=== PATIENT | female | born 1990 | race Caucasian/White ===

== ENCOUNTER 2017-12-07 16:00 | Inpatient (IN) ==
[2017-12-07] MEDS ORDERED: ceFAZolin 2 GM Premix Inj 2 GM/50 ML PIGGYBACK IV.SIG SCH (16:21)
[2017-12-07] MEDS ORDERED: Citric Acid/Sodium Citrate Liq 30 ML UDC PO SCH (16:30)
[2017-12-07 16:46] LABS: Baso % (Auto) 0.2 % (0.0-2.0); Eos % (Auto) 0.4 % (0.0-4.0); Lymph # (Auto) 1.9 th/mm3 (1.0-4.8); Lymph % (Auto) 19.7 % (9.0-44.0); Mean Platelet Volume 10.8 fL (7.0-11.0); Mono # (Auto) 0.5 th/mm3 (0.0-0.9); Mono % (Auto) 5.4 % (0.0-8.0); Neut # (Auto) 7.2 th/mm3 (1.8-7.7); Neut % (Auto) 74.3 % (16.0-70.0); Platelet Count 180 th/mm3 (150-450); Red Cell Distribution Width 13.1 % (11.6-17.2); White Blood Count 9.7 th/mm3 (4.0-11.0)
[2017-12-07 16:50] LABS: Hemoglobin 13.4 gm/dL (11.6-15.3); Mean Corpuscular HGB Conc 33.6 % (32.0-36.0); Mean Corpuscular Hemoglobin 29.5 pg (27.0-34.0); Mean Corpuscular Volume 87.8 fL (80.0-100.0); Red Blood Count 4.56 mil/mm3 (4.00-5.30)
[2017-12-07 16:57] LABS: Amphetamine Screen,Urine Neg (Neg); Barbiturate Screen,Urine Neg (Neg); Cannabinoid Screen,Urine Neg (Neg); Cocaine Screen,Urine Neg (Neg)
[2017-12-07 17:10] LABS: Opiate Screen,Urine Neg (Neg)
[2017-12-07] MEDS ORDERED: Morphine Sulfate PF Inj 5 MG/10 ML Ampul ONE (17:15)
[2017-12-07 17:16] LABS: Albumin 2.8 g/dL (3.4-5.0); Anion Gap 10 meq/L (5-15); Aspartate Aminotransferase 11 U/L (15-37); Blood Urea Nitrogen 6 mg/dL (7-18); Calcium 8.5 mg/dL (8.5-10.1); Carbon Dioxide 23.5 meq/L (21.0-32.0); Chloride 107 meq/L (98-107); Glomerular Filtration Rate Greater Than 89 mL/min (>89); Glucose,Random 77 mg/dL (74-106); Potassium 3.8 meq/L (3.5-5.1); Sodium 140 meq/L (136-145)
[2017-12-07 17:17] LABS: Alanine Aminotransferase 12 U/L (10-53); Protein/Creatinine Ratio,Urine 0.2 (0.00-0.14)
[2017-12-07 17:20] LABS: Alkaline Phosphatase 128 U/L (45-117); Total Protein 6.9 g/dL (6.4-8.2)
[2017-12-07 17:22] LABS: Platelet Estimate Normal (Normal); Platelet Morphology Normal (Normal); RBC Morphology Normal (Normal)
--- NOTE | 2017-12-07 17:40 | P.OP ---
Date of procedure: 12/07/17 Surgeon: Ranjan Alba MD Operation and Findings: Preoperative diagnosis: 1. Intrauterine at 38 weeks and 0 days 2. Oligohydramnios 3. Gestational hypertension 4. Two-vessel cord 5. History of low transverse section Postop diagnosis 1. Same as above status post repeat Procedure 1. Repeat low transverse section and bilateral tubal ligation ( modified Marley) Surgeon Dr. Ranjan Alba Leather Coater: [place] labor and delivery scrub staff Findings: 1. Viable male infant at 1810, Apgars 9 and 9, weight 355 0 g 2. Intact placenta two-vessel cord at 1813 3. Normal uterus, fallopian tubes and ovaries bilaterally, no intra-abdominal adhesions, minimal subcutaneous scarring. Anesthesia: Spinal Specimen: Placenta to donation. Bilateral fallopian tube segments to pathology routine Estimated blood loss: 600 cc Fluid replacement: 1500 cc lactated Ringer's and Pitocin Urine output: 300 cc clear [facility] DVT prophylaxis: Sequential compression devices throughout the case Antibiotics: 2 g Ancef preoperatively Counts: correct x2 Time out done: yes Disposition: Stable to PACU then Indications: Patient is a 27-year-old who is seen today for routine visit and testing for gestational hypertension that was diagnosed last week, she had new found oligohydramnios with PAVAN of 4.0 cm, and a BPP of 6 out of 8, we discussed options for delivery and patient presented today for scheduled , she had Mario been scheduled for repeat at 39 weeks. Description of procedure: The patient was taken to the operating room and after spinal anesthesia was performed she was positioned and supine position with arms out in a left lateral tilt, the abdomen was prepped and draped in sterile fashion, a Pfannenstiel incision was made through the previous scar and carried down sharply to the fascia which was nicked on either side of the midline, this was extended bilaterally, the fascia was elevated superiorly and inferiorly and the rectus muscles were sharply dissected off the overlying fascia, the peritoneum was entered digitally and retracted laterally. A bladder flap was developed with Metzenbaum scissors at the lower uterine segment, the hysterotomy was made in the lower uterine segment with a scalpel in a curvilinear fashion, it was extended cephalad-caudad manner, I inserted my hand into the hysterotomy and the head was elevated to the hysterotomy and with fundal pressure was delivered. With gentle downward and upward guidance the anterior and posterior shoulder was delivered, followed by the torso and lower extremities with ease, the infant had spontaneous cry the cord was clamped and cut, the was handed off to nursing staff after delayed cord clamping was allowed. Pitocin was bolused and with uterine massage and cord traction the placenta was delivered, uterus was cleared of clot and debris, the uterus was exteriorized and the hysterotomy was closed with 2 layers, first with unlocked 0 Vicryl, and a second with interrupted [id number] with 0 Vicryl mostly for hemostasis. the abdomen and hysterotomy were irrigated, inspected, and found to be hemostatic. Bilateral mid isthmic segments of the fallopian tube were elevated and doubly ligated with 0 plain gut and elevated knuckle was cut and transected with Metzenbaums. The cut edges were hemostatic. The fascia was closed from left to right with 0 running delayed absorbable suture. The subcutaneous tissue was irrigated, inspected, hemostasis was appreciated. Subcutaneous space was closed with running 3-0 Vicryl. the skin was closed with 3-0 Monocryl in a subcuticular fashion and then a dressing was applied and the patient tolerated procedure well was transferred to PACU.
--- NOTE | 2017-12-07 17:42 | P.OBGPN ---
Queried PDMP and reviewed report
[2017-12-07] MEDS ORDERED: Ketorolac Inj 30 MG/ML (IVP) Vial IV.PUSH ONE ×2 (17:45→18:56)
[2017-12-07] MEDS ORDERED: Influenza (Quadrivalent) Vaccine 0.5 ML Syringe IM ONE (18:00)
--- NOTE | 2017-12-07 18:23 | MH ---
cc: Ranjan Alba MD DATE OF ADMISSION: 12/07/2017 CHIEF COMPLAINT: Repeat . HISTORY OF PRESENT ILLNESS: This patient is a 27-year-old G3, P2-0-0-2, at 38 weeks and 0 days by 17-week ultrasound with estimated due date of 12/21/2017, here for a scheduled repeat due to new diagnosis of oligohydramnios and gestational hypertension. The patient has no complaints today. Her has been complicated by history of a low transverse , 2-vessel cord and diagnosis of gestational hypertension last week. PAST MEDICAL HISTORY: Scoliosis. MEDICATIONS: vitamins. ALLERGIES: NO KNOWN DRUG ALLERGIES. PAST SURGICAL HISTORY: 1. Scoliosis rods. 2. 2013. FAMILY HISTORY: No pertinent positive family. SOCIAL HISTORY: Former tobacco user. Denies any alcohol or drug use during the . LIGHTING ADVISER HISTORY: LMP 03/20/2017. Denies history of STD. OBSTETRIC HISTORY: 1. In 2010, at 39 weeks of a male weighing 9 pounds 4 ounces, no complications. 2. In 2013, 39 week scheduled low transverse due to suspected macrosomia, male, weight 7 pounds. PHYSICAL EXAMINATION: VITAL SIGNS: See EMR no acute distress. CARDIAC: Regular rate and rhythm. No murmurs or gallops. ABDOMEN: Soft, gravid, nontender. : Deferred. EXTREMITIES: No clubbing, cyanosis or edema. LABORATORY DATA: All labs are unremarkable. Please see her a cog for details. ASSESSMENT AND PLAN: A 27-year-old, G3, P2-0-0-2 at 30 weeks and 0 days, for repeat and bilateral tubal ligation. 1. Intrauterine : Will be placed on monitoring. PAVAN of 4.2 cm today, in cephalic position placenta anterior. 2. History of , desiring repeat. The patient was counseled on the risks, benefits, and expected outcomes of a . Please see consent for further details. The patient also desires sterilization. This was done today secondary to new diagnosis of oligohydramnios and 6/8 BPP. 3. Gestational hypertension based on normal HELLP labs last week, elevated blood pressures in the mild range, and a protein creatinine ratio of 0.245. We will continue to monitor blood pressures while inpatient and collect HELLP labs on admission 4. Oligohydramnios: Diagnosed today 5. Two-vessel cord, negative quad screen, normal anatomy. 6. Scoliosis. Anesthesia to assess candidacy for regional anesthesia. 7. Desires sterilization. Signed Medicaid consent in the office. MD DIANE Carlson/elodia , 04:59 PM , 05:09 PM MTDD
[2017-12-07] MEDS ORDERED: Zolpidem Tartrate 5 MG Tablet PO PRN (18:56)
[2017-12-07] MEDS ORDERED: Acetaminophen 325 MG Tablet PO PRN (18:56)
[2017-12-07] MEDS ORDERED: Oxytocin 30 Units/500ml Premix 30 UNITS/500 ML BAG IV.SIG ONE (18:56)
[2017-12-07] MEDS ORDERED: Oxytocin 30 Units/500ml Premix 30 UNITS/500 ML BAG IV.SIG PRN (23:56)
[2017-12-08] MEDS: Ketorolac Inj 30 MG/ML (IVP) Vial IV.PUSH SCH ×3 (01:00→14:11)
--- NOTE | 2017-12-08 07:49 | P.PNOB ---
Subjective Post op day: 1 Interval history: rounds at 8 am orozco out 2 hours ago, has not voided pain well controlled Objective Vital Signs/I&O: Vital Signs 12/07/17 16:30 12/07/17 16:45 12/07/17 17:00 Temperature 98.4 F Pulse Rate 108 H 94 H 91 H Respiratory Rate 18 Blood Pressure 128/74 138/85 129/74 12/07/17 17:15 12/07/17 18:58 12/07/17 19:08 Temperature 97.5 F L Pulse Rate 94 H 91 H 97 H Respiratory Rate 18 18 Blood Pressure 131/77 125/62 126/61 12/07/17 19:23 12/07/17 19:39 12/07/17 19:57 Temperature Pulse Rate 97 H 88 82 Respiratory Rate 18 18 18 Blood Pressure 142/62 H 133/66 130/67 12/07/17 20:30 12/07/17 21:30 12/08/17 00:03 Temperature 97.4 F L 97.6 F Pulse Rate 88 92 H Respiratory Rate 18 18 20 Blood Pressure 148/79 H 140/84 12/08/17 03:30 12/08/17 04:08 Temperature 97.9 F Pulse Rate 81 Respiratory Rate 16 18 Blood Pressure 124/76 Intake & Output 12/07/17 12/08/17 12/08/17 18:59 06:59 18:59 Weight 88.451 kg Other: Weight On Admission 195 kg Result Diagrams: 12/08/17 08:47 12/07/17 16:24 Objective Remarks: GENERAL: Well-nourished, well-developed patient. CARDIOVASCULAR: Regular rate and rhythm without murmurs, gallops, or rubs. RESPIRATORY: Breath sounds equal bilaterally. No accessory muscle use. ABDOMEN/GI: Abdomen soft, non-tender, bowel sounds present. Incision: dressing Clean, dry and intact. Fundus: Firm, non-tender at umbilicus. GENITOURINARY: Light to moderate bleeding. EXTREMITIES: No cyanosis or edema, non-tender, without signs of DVT. Medications and IVs: Active Medications Acetaminophen (Tylenol) 650 mg PO Q6H PRN PRN Reason: PAIN SCALE 1 TO 2 Citric Acid/Sodium Citrate (Sodium Citrate/Citric Acid Liq) 30 ml PO LEARNING SUPPORT TEACHER KATELYNN Stop: 12/11/17 16:29 Last Admin: 12/07/17 16:54 Dose: 30 ml Diphenhydramine HCl (Benadryl) 25 mg PO Q4H PRN PRN Reason: ITCHING Last Admin: 12/08/17 00:10 Dose: 25 mg Diphtheria/Pertussis/Tetanus Vacc (Boostrix Vaccine Inj) 0.5 ml IM .ONCE ONE Stop: 12/08/17 16:01 Cefazolin Sodium/Dextrose (Ancef 2 Gm Premix Inj) 2 gm in 50 mls @ 100 mls/hr IV.SIG LEARNING SUPPORT TEACHER [facility] Stop: 12/11/17 16:20 Lactated Ringer's (Lr 1000 Ml Inj) 1,000 mls @ 150 mls/hr IV.CONT .Q6H40M [facility] Last Admin: 12/07/17 16:53 Dose: 150 mls/hr Lactated Ringer's (Lr 1000 Ml Inj) 1,000 mls @ 100 mls/hr IV.CONT .Q10H [facility] Stop: 12/08/17 19:55 Last Admin: 12/07/17 23:41 Dose: 100 mls/hr Oxytocin (Pitocin 30 Units/Ns 500 Ml Premix) 30 units in 500 mls @ 100 mls/hr IV.SIG UNSCH PRN PRN Reason: Heavy bleeding Ibuprofen (Motrin) 800 mg PO Q8H PRN PRN Reason: cramping Ketorolac Tromethamine (Toradol Inj) 15 mg IV.PUSH Q6H [facility] Stop: 12/08/17 19:00 Last Admin: 12/08/17 06:58 Dose: 15 mg Measles/Mumps/Rubella Vaccine Live (M-M-R Ii Vaccine Inj) 0.5 ml SQ .ONCE ONE Stop: 12/08/17 16:01 Ondansetron HCl (Zofran Inj) 4 mg IV.PUSH Q6H PRN PRN Reason: NAUSEA OR VOMITING Last Admin: 12/08/17 00:10 Dose: 4 mg Oxycodone/Acetaminophen (Percocet 5/325 Mg) 1 tab PO Q4H PRN PRN Reason: PAIN SCALE 3 TO 5 Oxycodone/Acetaminophen (Percocet 5/325 Mg) 2 tab PO Q4H PRN PRN Reason: PAIN SCALE 6 TO 10 Senna/Docusate Sodium (Michelle-Colace) 2 tab PO Q12H PRN PRN Reason: CONSTIPATION Sodium Chloride (Ns Flush) 2 ml IV.FLUSH BID KATELYNN Sodium Chloride (Ns Flush) 2 ml IV.FLUSH PRN PRN PRN Reason: FLUSH AFTER USING IV ACCESS Zolpidem Tartrate (Ambien) 5 mg PO HS PRN PRN Reason: INSOMNIA Assessment and Plan - Diagnosis (1) Status post delivery Code(s): Z98.891 - History of uterine scar from previous surgery Status: Acute (2) Encounter for sterilization Code(s): Z30.2 - Encounter for sterilization Status: Acute - Plan POD 1 s/p rltcd and btl cont routine care, encourage ambulation. support breast feeding d/c ppd 2-3
[2017-12-08 09:02] LABS: Baso % (Auto) 0.2 % (0.0-2.0); Hematocrit 32.1 % (35.0-46.0); Hemoglobin 11.2 gm/dL (11.6-15.3); Lymph % (Auto) 12.6 % (9.0-44.0); Mean Corpuscular HGB Conc 34.8 % (32.0-36.0); Mean Corpuscular Hemoglobin 29.9 pg (27.0-34.0); Mean Platelet Volume 11.4 fL (7.0-11.0); Mono # (Auto) 0.7 th/mm3 (0.0-0.9); Mono % (Auto) 4.3 % (0.0-8.0); Neut # (Auto) 12.9 th/mm3 (1.8-7.7); Neut % (Auto) 82.9 % (16.0-70.0); Platelet Count 160 th/mm3 (150-450); Red Blood Count 3.73 mil/mm3 (4.00-5.30); Red Cell Distribution Width 13.3 % (11.6-17.2); White Blood Count 15.6 th/mm3 (4.0-11.0)
[2017-12-08] MEDS ORDERED: Measles/Mumps/Rubella Vaccine Inj 0.5 ML Vial SQ ONE (16:00)
[2017-12-08] MEDS ORDERED: Diphtheria/Tetanus/Pertussis Vaccine Inj 0.5 ML Syringe IM ONE (16:00)
[2017-12-08] MEDS: Senna/Docusate Sodium 8.6/50 MG Tablet PO PRN (19:59)
[2017-12-09] MEDS: Senna/Docusate Sodium 8.6/50 MG Tablet PO PRN (08:29)
--- NOTE | 2017-12-09 08:54 | P.PNOB ---
Subjective Post op day: 2 Interval history: feels pain not optimally controlled Objective Vital Signs/I&O: Vital Signs 12/08/17 11:46 12/08/17 20:00 12/09/17 08:00 Temperature 97.8 F 98.5 F 97.8 F Pulse Rate 110 H 72 68 Respiratory Rate 18 18 Blood Pressure 137/68 134/78 126/69 Result Diagrams: 12/08/17 08:47 12/07/17 16:24 Objective Remarks: GENERAL: Well-nourished, well-developed patient. CARDIOVASCULAR: Regular rate and rhythm without murmurs, gallops, or rubs. RESPIRATORY: Breath sounds equal bilaterally. No accessory muscle use. ABDOMEN/GI: Abdomen soft, non-tender, bowel sounds present. Incision: Clean, dry and intact. Fundus: Firm, non-tender at umbilicus. GENITOURINARY: Light to moderate bleeding. EXTREMITIES: No cyanosis or edema, non-tender, without signs of DVT. Medications and IVs: Active Medications Acetaminophen (Tylenol) 650 mg PO Q6H PRN PRN Reason: PAIN SCALE 1 TO 2 Citric Acid/Sodium Citrate (Sodium Citrate/Citric Acid Liq) 30 ml PO ANIMAL NURSERY WORKER [facility] Stop: 12/11/17 16:29 Last Admin: 12/07/17 16:54 Dose: 30 ml Diphenhydramine HCl (Benadryl) 25 mg PO Q4H PRN PRN Reason: ITCHING Last Admin: 12/08/17 22:26 Dose: 25 mg Cefazolin Sodium/Dextrose (Ancef 2 Gm Premix Inj) 2 gm in 50 mls @ 100 mls/hr IV.SIG ANIMAL NURSERY WORKER [facility] Stop: 12/11/17 16:20 Lactated Ringer's (Lr 1000 Ml Inj) 1,000 mls @ 150 mls/hr IV.CONT .Q6H40M [facility] Last Admin: 12/09/17 07:22 Dose: Not Given Oxytocin (Pitocin 30 Units/Ns 500 Ml Premix) 30 units in 500 mls @ 100 mls/hr IV.SIG UNSCH PRN PRN Reason: Heavy bleeding Ibuprofen (Motrin) 800 mg PO Q8H PRN PRN Reason: cramping Last Admin: 12/09/17 08:29 Dose: 800 mg Ondansetron HCl (Zofran Inj) 4 mg IV.PUSH Q6H PRN PRN Reason: NAUSEA OR VOMITING Last Admin: 12/08/17 00:10 Dose: 4 mg Oxycodone/Acetaminophen (Percocet 5/325 Mg) 1 tab PO Q4H PRN PRN Reason: PAIN SCALE 3 TO 5 Last Admin: 12/08/17 12:13 Dose: 1 tab Oxycodone/Acetaminophen (Percocet 5/325 Mg) 2 tab PO Q4H PRN PRN Reason: PAIN SCALE 6 TO 10 Last Admin: 12/09/17 08:28 Dose: 2 tab Senna/Docusate Sodium (Michelle-Colace) 2 tab PO Q12H PRN PRN Reason: CONSTIPATION Last Admin: 12/09/17 08:29 Dose: 2 tab Sodium Chloride (Ns Flush) 2 ml IV.FLUSH BID KATELYNN Last Admin: 12/09/17 07:22 Dose: Not Given Sodium Chloride (Ns Flush) 2 ml IV.FLUSH PRN PRN PRN Reason: FLUSH AFTER USING IV ACCESS Zolpidem Tartrate (Ambien) 5 mg PO HS PRN PRN Reason: INSOMNIA Assessment and Plan - Diagnosis (1) Status post delivery Code(s): Z98.891 - History of uterine scar from previous surgery Status: Acute (2) Encounter for sterilization Code(s): Z30.2 - Encounter for sterilization Status: Acute - Plan POD 2s/p rltcd and btl cont routine care, d/c ppd 3
[2017-12-09 19:47] VITALS: BP 145/80; PULSE 89; RESP 20
[2017-12-09 19:48] VITALS: TEMP 98.1
--- NOTE | 2017-12-10 11:01 | P.PNOB ---
Subjective Post op day: 3 Interval history: increased pain last night and had one dilaudid po and since then has had good relief of pain. Vodiding,ambulating, kevin po, passing flatus Objective Vital Signs/I&O: Vital Signs 12/09/17 19:21 Temperature 98.1 F Pulse Rate 89 Respiratory Rate 20 Blood Pressure 145/80 H Result Diagrams: 12/08/17 08:47 12/07/17 16:24 Objective Remarks: GENERAL: Well-nourished, well-developed patient. CARDIOVASCULAR: Regular rate and rhythm without murmurs, gallops, or rubs. RESPIRATORY: Breath sounds equal bilaterally. No accessory muscle use. ABDOMEN/GI: Abdomen soft, non-tender, bowel sounds present. Incision: Clean, dry and intact.steris in place Fundus: Firm, non-tender at umbilicus. GENITOURINARY: Light to moderate bleeding. EXTREMITIES: No cyanosis or edema, non-tender, without signs of DVT. Medications and IVs: Active Medications Acetaminophen (Tylenol) 650 mg PO Q6H PRN PRN Reason: PAIN SCALE 1 TO 2 Citric Acid/Sodium Citrate (Sodium Citrate/Citric Acid Liq) 30 ml PO BRANCH LEAD [facility] Stop: 12/11/17 16:29 Last Admin: 12/07/17 16:54 Dose: 30 ml Cyclobenzaprine HCl (Flexeril) 10 mg PO Q8H PRN PRN Reason: ABDOMINAL PAIN Diphenhydramine HCl (Benadryl) 25 mg PO Q4H PRN PRN Reason: ITCHING Last Admin: 12/08/17 22:26 Dose: 25 mg Cefazolin Sodium/Dextrose (Ancef 2 Gm Premix Inj) 2 gm in 50 mls @ 100 mls/hr IV.SIG [employer]CH [employer] [facility] Stop: 12/11/17 16:20 Lactated Ringer's (Lr 1000 Ml Inj) 1,000 mls @ 150 mls/hr IV.CONT .Q6H40M [facility] Last Admin: 12/10/17 04:39 Dose: Not Given Oxytocin (Pitocin 30 Units/Ns 500 Ml Premix) 30 units in 500 mls @ 100 mls/hr IV.SIG UNSCH PRN PRN Reason: Heavy bleeding Ibuprofen (Motrin) 800 mg PO Q8H PRN PRN Reason: cramping Last Admin: 12/10/17 10:24 Dose: 800 mg Ondansetron HCl (Zofran Inj) 4 mg IV.PUSH Q6H PRN PRN Reason: NAUSEA OR VOMITING Last Admin: 12/08/17 00:10 Dose: 4 mg Oxycodone/Acetaminophen (Percocet 5/325 Mg) 1 tab PO Q4H PRN PRN Reason: PAIN SCALE 3 TO 5 Last Admin: 12/08/17 12:13 Dose: 1 tab Oxycodone/Acetaminophen (Percocet 5/325 Mg) 2 tab PO Q4H PRN PRN Reason: PAIN SCALE 6 TO 10 Last Admin: 12/10/17 10:24 Dose: 2 tab Senna/Docusate Sodium (Michelle-Colace) 2 tab PO Q12H PRN PRN Reason: CONSTIPATION Last Admin: 12/09/17 08:29 Dose: 2 tab Sodium Chloride (Ns Flush) 2 ml IV.FLUSH BID KATELYNN Last Admin: 12/09/17 21:35 Dose: Not Given Sodium Chloride (Ns Flush) 2 ml IV.FLUSH PRN PRN PRN Reason: FLUSH AFTER USING IV ACCESS Zolpidem Tartrate (Ambien) 5 mg PO HS PRN PRN Reason: INSOMNIA Assessment and Plan - Diagnosis (1) Status post delivery Code(s): Z98.891 - History of uterine scar from previous surgery Status: Acute (2) Encounter for sterilization Code(s): Z30.2 - Encounter for sterilization Status: Acute - Plan POD 3 s/p rltcd and btl cont routine care, d/c ppd 3
== END 2017-12-10 13:09 | disposition home or self-care (01) ==
LOC: H2E 16:00 → H1EA 20:18
PROVIDERS: ADMIT Obstetrics & Gynecology; ATTEND Obstetrics & Gynecology